=== PATIENT | male | born 1970 | race Caucasian/White ===

== ENCOUNTER → 2018-04-11 | Outpatient (CLI) | payer OTHER ==
--- NOTE | 2018-04-11 11:53 | CARD ---
MR#: [id number] Date of Study: 04/11/2018 Ordering Physician: KAILYN RIOS, Referring Physician: KAILYN RIOS, Tech: Taya Jack APPROVED REPORT EXAM: Two-dimensional and M-mode echocardiogram with Doppler and color Doppler. Other Information Quality : GoodHR: 55bpm INDICATION Palpitations 2D DIMENSIONS RVDd2.6 (2.9-3.5cm)Left Atrium(2D)4.3 (1.6-4.0cm) IVSd0.9 (0.7-1.1cm)Aortic Root(2D)3.5 (2.0-3.7cm) LVDd5.5 (3.9-5.9cm)LVOT Diameter2.1 (1.8-2.4cm) PWd1.2 (0.7-1.1cm)LVDs3.3 (2.5-4.0cm) FS (%) 39.4 %SV101.7 ml LVEF(%)69.3 (>50%) Aortic Valve AoV Peak Valeriy.131.3cm/sAoV VTI26.2cm AO Peak GR.6.9mmHgLVOT VTI 22.23cm AO Mean GR.3mmHg Mitral Valve MV E Uxzcvunz97.2cm/sMV DECEL [id number] MV A Cgeipazk98.8cm/sE/A Ratio1.5 TDI Lateral E' P. V15.73cm/sMedial E' P. V10.15cm/s E/Lateral E'4.7E/Medial E'7.2 Tricuspid Valve TR P. Fbfapsqo778zu/sRAP [id number] TR Peak Gr.42vfEiMXRN80rjZv Pulmonary Vein S1 Yezjgjam86.4cm/sS2 Ipwyxkad74.87cm/s D2 Yymbshkz85.9cm/s LEFT VENTRICLE The left ventricle is normal size. There is normal left ventricular wall thickness. The left ventricu lar systolic function is normal and the ejection fraction is within normal range. The Ejection Fracti on is 60-65%. There is normal LV segmental wall motion. The left ventricular diastolic function and f illing is normal for age. RIGHT VENTRICLE The right ventricle is normal size. There is normal right ventricular wall thickness. ATRIA The left atrium size is normal. The right atrium size is normal. The interatrial septum is intact wit h no evidence for an atrial septal defect or patent foramen ovale as noted on 2-D or Doppler imaging. AORTIC VALVE The aortic valve is normal in structure and function. Doppler and Color Flow revealed no significant aortic regurgitation. There is no significant aortic valvular stenosis. MITRAL VALVE The mitral valve is normal in structure and function. There is no mitral valve stenosis. Doppler and Color-flow revealed trace mitral regurgitation. TRICUSPID VALVE The tricuspid valve is normal in structure and function. Doppler and Color Flow revealed trace tricus pid regurgitation. There is no tricuspid valve stenosis. PULMONIC VALVE Doppler and Color Flow revealed no pulmonic valvular regurgitation. There is no pulmonic valvular alise nosis. GREAT VESSELS The aortic root is normal in size. The IVC is normal in size and collapses >50% with inspiration. PERICARDIAL EFFUSION There is no evidence of significant pericardial effusion. Critical Notification Critical Value: No <Conclusion> The left ventricular systolic function is normal and the ejection fraction is within normal range. Th e Ejection Fraction is 60-65%. There is normal LV segmental wall motion. Signed by : Darwin Mclean, Electronically Approved : 04/11/2018 11:52:56
== END | disposition home or self-care (01) ==
LOC: ECHO 08:13
PROVIDERS: ATTEND Internal Medicine Cardiovascular Disease
DX: R00.2 Palpitations (principal)
CPT/HCPCS: 93306